=== PATIENT | female | born 1965 | race American Indian/Alaskan Native ===

== ENCOUNTER 2021-12-09 15:03 | Inpatient (IN) ==
[2021-12-09] MEDS ORDERED: cefTRIAXone 1 GM VIAL IV ONE (15:21)
[2021-12-09] MEDS ORDERED: 0.9 % SODIUM CHLORIDE 1,000 ML IV ONE ×2 (15:21)
--- NOTE | 2021-12-09 15:29 | Emergency Department Note ---
Female Urogenital HPI General Chief complaint: Urogenital-Female Stated complaint: UTI, High WBC Time Seen by Provider: 12/09/21 15:21 Source: patient Mode of arrival: ambulatory Limitations: no limitations History of Present Illness HPI Narrative: Narrative: Eight 56-year-old female presents to the emergency department because of fever chills and high white count. Patient went to the clinic where she was noted to have a white count of 21,000 and of large amount of leukocytes in her urine. She had a fever of 102 there and was referred here for further evaluation. Patient states she developed a headache on Thursday which got worse with time. She also developed a fever with that. States she took her migraine medications but they were of no help. Rates her headache as a 10 on a 0-to-10 scale. States it is constant. Nothing makes it better or worse. Related Data Home Medications Medication Instructions Recorded Confirmed carvedilol 6.25 mg tablet 6.25 mg PO BID 11/27/15 10/31/21 chlorthalidone 25 mg tablet 12.5 mg PO QDAY tab 11/27/15 10/31/21 naproxen 250 mg tablet 250 mg PO Q6-12H PRN 01/31/16 10/31/21 magnesium 1 dose PO DAILY 10/08/17 10/31/21 ascorbate calcium (vitamin C) 500 500 mg PO DAILY 02/03/19 10/31/21 mg tablet bupropion HCl 300 mg 24 hr tablet, 300 mg PO DAILY 02/03/19 10/31/21 extended release docusate sodium 100 mg capsule 100 mg PO TID 08/30/19 10/31/21 ergocalciferol (vitamin D2) 1,250 50,000 unit PO WEEKLY 08/30/19 10/31/21 mcg (50,000 unit) capsule multivitamin,[id number] 1 tab PO DAILY 08/30/19 10/31/21 omeprazole 20 mg capsule,delayed 20 mg PO ACB 08/30/19 10/31/21 release Previous Rx's Medication Instructions Recorded cyclobenzaprine 10 mg tablet 10 mg PO HS #30 tab 04/02/20 hydroxychloroquine 200 mg tablet 200 mg PO BID #60 tab 10/09/21 Allergies Allergy/AdvReac Type Severity Reaction Status Date / Time adhesive tape Allergy Unknown Rash Verified 12/09/21 15:05 codeine Allergy Unknown Nausea/Vomi Verified 12/09/21 15:05 ting Review of Systems ROS ROS Narrative: Narrative: Constitutional: Reports fever Eyes: Denies eye pain ENT ED: Reports rhinorrhea; Denies throat pain Cardiovascular: Denies chest pain Respiratory: Denies shortness of breath Gastrointestinal: Reports nausea (Earlier with headache.) Genitourinary: Denies dysuria (History of UTIs without dysuria) Musculoskeletal: Denies back pain Integumentary: Denies rash Neurological: Reports headache Psychiatric: Denies anxiety or depression Hematological/Lymphatic: Denies easy bleeding PFSH Narrative Patient History Narrative: Narrative: Medical/Surgical/Family History All Active Problems History of echocardiogram (Chronic 09/24/15) Back pain (Chronic 10/08/15) Herpes simplex type 1 infection (Chronic) History of mammogram (Chronic) Arm weakness (Chronic) Migraines (Chronic) Melasma (Chronic) Gastroesophageal reflux disease (Chronic) Aortic aneurysm (Chronic) Benign essential hypertension (Chronic) Anemia (Chronic) Lactose intolerance (Chronic) Systolic murmur (Chronic) Cough (Chronic) Lumbar spine pain (Chronic) UTI (urinary tract infection) (Chronic) Kidney stone (Chronic) Muscle pain (Chronic) Sciatica (Chronic) Anxiety (Chronic) Brief depressive adjustment reaction (Chronic) Syncope (Chronic) Abnormal Pap smear of cervix (Chronic) Thoracic back pain (Chronic) Hx of CT scan of brain (Chronic) Sinusitis (Chronic) Fatigue (Acute) Elevated erythrocyte sedimentation rate (Chronic) Abnormal immunological finding in serum (Chronic) Long-term use of immunosuppressant medication (Chronic) Elevated C-reactive protein (Chronic) Obesity (Acute) Medical History Abnormal immunological finding in serum Abnormal Pap smear of cervix 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 Anemia Anxiety Aortic aneurysm Arm weakness and numbness-intermittent Back pain (10/08/15) Benign essential hypertension Brief depressive adjustment reaction Cough Disorder of connective tissue Elevated C-reactive protein Elevated erythrocyte sedimentation rate Fatigue Gastroesophageal reflux disease Herpes simplex type 1 infection History of echocardiogram (09/24/15) History of mammogram Hx of CT scan of brain Kidney stone Lactose intolerance Long-term use of immunosuppressant medication Lumbar spine pain Melasma Migraines Muscle pain Obesity Sciatica Sinusitis Syncope Brain CT normal x sinusitis Systolic murmur Thoracic back pain Acute UTI (urinary tract infection) Surgical History Aortic dilatation Family History Other No pertinent family history Social History Smoking Status: Never smoker Exam Narrative Narrative: Narrative: General Limitations: no limitations General appearance: Present alert and in distress Head Head: Present atraumatic and normocephalic Eye Eye: Present normal appearance ENT ENT: Present normal oropharynx and mucous membranes moist Neck Neck: Present normal inspection and full ROM; Absent meningismus Respiratory Respiratory: Present normal lung sounds bilaterally; Absent respiratory distress Cardiovascular Cardiovascular: Present normal rhythm and tachycardia Adbominal Abdominal: Present soft; Absent distention, tenderness, guarding, rebound or rigidity Extremities Extremities: Present normal inspection Back Back: Absent tenderness Neurological Neurological: Present alert and oriented X3 Psychiatric Psychiatric: Present normal affect and normal mood Skin Skin: Present warm (WNL) and dry Course Vital Signs Vital signs: Vital Signs Temperature 100.2 F H 12/09/21 15:03 Pulse Rate 105 H 12/09/21 15:03 Respiratory Rate 18 12/09/21 15:03 Blood Pressure 122/73 12/09/21 15:03 Pulse Oximetry (%) 98 12/09/21 15:03 Temperature 100.2 F H 12/09/21 16:02 Pulse Rate 97 H 12/09/21 16:02 Respiratory Rate 18 12/09/21 15:03 Blood Pressure 132/59 12/09/21 16:02 Pulse Oximetry (%) 97 12/09/21 16:02 [facility] MDM Narrative Medical decision making narrative: Narrative: Middle-age female presents with her to the emergency department coming from acute care clinic because of a white count of 20,000 with leukocytosis and fever of 102. Differential diagnosis includes pyelonephritis, urosepsis, sepsis of other etiology, UTI, headache of unclear etiology, migraine, other Because of concern for sepsis sepsis blood work was ordered blood cultures were obtained and patient was started on ceftriaxone 1 g IV. At this time we are awaiting laboratory results. Patient's been given 975 mg of acetaminophen for headache. I am signing the case over to Dr. Ricardo Alcantar who will assume care of the patient and determine disposition Lab Data Result diagrams: 12/09/21 15:41 12/09/21 15:40 Discharge Plan Patient/Caregiver Discharge Instructions Pt seen by HEALTH ADMINISTRATION TEACHER/PA only: No Patient Disposition: Still a Patient Follow up with: Anjelica Gallardo ARNP [Primary Care Provider] - Prescriptions: No Action cyclobenzaprine 10 mg tablet 10 mg PO HS Qty: 30 3RF hydroxychloroquine 200 mg tablet 200 mg PO BID Qty: 60 3RF carvedilol 6.25 mg tablet 6.25 mg PO BID 0RF chlorthalidone 25 mg tablet 12.5 mg PO QDAY 0RF naproxen 250 mg tablet 250 mg PO Q6-12H PRN (Reason: Pain) 0RF magnesium 1 dose PO DAILY 0RF ascorbate calcium (vitamin C) 500 MG tablet 500 mg PO DAILY 0RF bupropion HCl 300 MG tablet extended release 24 hr 300 mg PO DAILY 0RF docusate sodium 100 MG capsule 100 mg PO TID 0RF omeprazole 20 MG capsule 20 mg PO ACB 0RF ergocalciferol (vitamin D2) 50,000 UNIT capsule 50,000 unit PO WEEKLY 0RF multivitamin,[id number]-[id number] 1 EACH tablet 1 tab PO DAILY 0RF
[2021-12-09] MEDS ORDERED: ACETAMINOPHEN 325 MG TABLET PO ONE (15:56)
[2021-12-09 16:35] LABS: Basophils # (Auto) 0.04 K/mcL (0.00-0.30); Basophils % (Auto) 0.2 % (0.0-2.0); Eosinophils # (Auto) 0.04 K/mcL (0.00-0.70); Eosinophils % (Auto) 0.2 % (0.0-7.0); Hematocrit 37.8 % (34.1-44.9); Hemoglobin 12.4 g/dL (11.2-15.7); Lymphocytes # (Auto) 2.53 K/mcL (1.50-4.80); Lymphocytes % (Auto) 12.7 % (15.5-49.0); Mean Cell Volume 91.3 fL (80.0-100.0); Mean Corpuscular HGB Conc 32.8 g/dL (31.0-36.0); Mean Platelet Volume 10.6 fL (7.4-10.4); Monocytes # (Auto) 2.29 K/mcL (0.10-0.90); Monocytes % (Auto) 11.5 % (1.0-12.0); Neutrophils % (Auto) 75.4 % (38.0-78.0); Platelet Count 245 K/mcL (140-440); RBC 4.14 M/mcL (3.59-5.38); WBC 19.9 K/mcL (4.5-11.0)
[2021-12-09 17:09] LABS: ALT/SGPT 12 U/L (<40); AST/SGOT 14 U/L (<32); Albumin 3.5 gm/dL (3.2-5.2); Albumin/Globulin Ratio 0.9 (1.0-2.3); Alkaline Phosphatase 96 U/L (39-117); Bilirubin,Total 0.5 mg/dL (0.1-1.0); Blood Urea Nitrogen 27 mg/dL (6-20); Calcium 10.3 mg/dL (8.6-10.4); Carbon Dioxide 28 mmol/L (22-30); Chloride 94 mmol/L (96-108); Glomerular Filtration Rate 27; Glucose 102 mg/dL (70-105)
--- NOTE | 2021-12-09 17:23 | Emergency Department Note ---
Course Vital Signs Vital signs: Vital Signs Temperature 37.9 C H 12/09/21 15:03 Pulse Rate 105 H 12/09/21 15:03 Respiratory Rate 18 12/09/21 15:03 Blood Pressure 122/73 12/09/21 15:03 Pulse Oximetry (%) 98 12/09/21 15:03 Temperature 38.2 C H 12/09/21 17:36 Pulse Rate 81 12/09/21 20:54 Respiratory Rate 18 12/09/21 15:03 Blood Pressure 127/68 12/09/21 20:54 Pulse Oximetry (%) 94 12/09/21 20:54 MDM MDM Narrative Medical decision making narrative: Narrative: Patient referred to the ER for suspected urinary infection /pyelonephritis, evaluated by Dr. Wong please refer to his note for complete details. Patient was borderline febrile 37.9, tracely tachycardic 105, with SIRS criteria so sepsis work-up was initiated Patient was given Tylenol, she was given 1 g of Rocephin, 2 L bolus while work was pending signed out to me pending final disposition 1700: Patient indeed has a leukocytosis 19.9, normal lactic acid of 1.1 Electrolytes show an acute kidney injury her BUN is 27 with a creatinine of 2.0 previously creatinine is less than 1. This may be due to infectious etiology but now concern for obstructive process as well will obtain CT of the abdomen without contrast. Still awaiting urinalysis, tachycardia resolved awaiting further diagnostics Urinalysis clearly infectious CT shows some left-sided hydronephrosis without obstruction Presentation consistent with a pyelonephritis in the setting of injury thus I consulted with urology Dr. Jacobs who recommends observation admission overnight for some further antibiotics fluids and trending of the creatinine to make sure it is improving and he will consult on the patient. Patient agreeable with this plan is feeling much better on reevaluation Spoke with hospitalist who accepts admission Lab Data Result diagrams: 12/09/21 15:41 12/09/21 15:40 Labs: Lab Results 12/09/21 12/09/21 12/09/21 Range/Units 15:40 15:40 15:41 WBC 19.9 H (4.5-11.0) K/mcL RBC 4.14 (3.59-5.38) M/mcL Hgb 12.4 (11.2-15.7) g/dL Hct 37.8 (34.1-44.9) % MCV 91.3 (80.0-100.0) fL MCH 30.0 (26.0-34.0) pg MCHC 32.8 (31.0-36.0) g/dL RDW 14.0 (11.5-14.5) % Plt Count 245 (140-440) K/mcL MPV 10.6 H (7.4-10.4) fL Neut % (Auto) 75.4 (38.0-78.0) % Lymph % (Auto) 12.7 L (15.5-49.0) % [place] % (Auto) 11.5 (1.0-12.0) % Eos % (Auto) 0.2 (0.0-7.0) % Baso % (Auto) 0.2 (0.0-2.0) % Lymph # (Auto) 2.53 (1.50-4.80) K/mcL [place] # (Auto) 2.29 H (0.10-0.90) K/mcL Eos # (Auto) 0.04 (0.00-0.70) K/mcL Baso # (Auto) 0.04 (0.00-0.30) K/mcL Absolute Neutrophils 14.96 H (1.80-8.00) K/mcL VBG Lactic Acid 1.1 (0.5-2.0) mmol/L Sodium 135 (133-145) mmol/L Potassium 3.2 L (3.3-5.1) mmol/L Chloride 94 L (96-108) mmol/L Carbon Dioxide 28 (22-30) mmol/L Anion Gap 13.0 (8.0-16.0) BUN 27 H (6-20) mg/dL Creatinine 2.0 H (0.6-1.1) mg/dL GFR Calculation 27 Glucose 102 (70-105) mg/dL Calcium 10.3 (8.6-10.4) mg/dL Total Bilirubin 0.5 (0.1-1.0) mg/dL AST 14 (<32) U/L ALT 12 (<40) U/L Alkaline Phosphatase 96 (39-117) U/L Total Protein 7.5 (5.9-8.4) gm/dL Albumin 3.5 (3.2-5.2) gm/dL Globulin 4.0 H (2.2-3.7) gm/dL Albumin/Globulin Ratio 0.9 L (1.0-2.3) Urine Color Urine Appearance (Clear) Urine pH (5.0-9.0) Ur Specific Big[place] (1.000-1.035) Urine Protein (Negative) mg/dL Urine Glucose (UA) (Negative) mg/dL Urine Ketones (Negative) mg/dL Urine Occult Blood (Negative) mg/dL Urine Nitrate (Negative) Urine Bilirubin (Negative) mg/dL Urine Urobilinogen mg/dL Ur Leukocyte Esterase (Negative) /uL Urine RBC (0-3) /hpf Urine WBC (0-4) /hpf Ur Squamous Epith Cells (0-4) /hpf Urine Bacteria (0) /hpf Urine Mucus (None) /hpf Ur Culture Indicated? 12/09/21 Range/Units 18:05 WBC (4.5-11.0) K/mcL RBC (3.59-5.38) M/mcL Hgb (11.2-15.7) g/dL Hct (34.1-44.9) % MCV (80.0-100.0) fL MCH (26.0-34.0) pg MCHC (31.0-36.0) g/dL RDW (11.5-14.5) % Plt Count (140-440) K/mcL MPV (7.4-10.4) fL Neut % (Auto) (38.0-78.0) % Lymph % (Auto) (15.5-49.0) % [place] % (Auto) (1.0-12.0) % Eos % (Auto) (0.0-7.0) % Baso % (Auto) (0.0-2.0) % Lymph # (Auto) (1.50-4.80) K/mcL [place] # (Auto) (0.10-0.90) K/mcL Eos # (Auto) (0.00-0.70) K/mcL Baso # (Auto) (0.00-0.30) K/mcL Absolute Neutrophils (1.80-8.00) K/mcL VBG Lactic Acid (0.5-2.0) mmol/L Sodium (133-145) mmol/L Potassium (3.3-5.1) mmol/L Chloride (96-108) mmol/L Carbon Dioxide (22-30) mmol/L Anion Gap (8.0-16.0) BUN (6-20) mg/dL Creatinine (0.6-1.1) mg/dL GFR Calculation Glucose (70-105) mg/dL Calcium (8.6-10.4) mg/dL Total Bilirubin (0.1-1.0) mg/dL AST (<32) U/L ALT (<40) U/L Alkaline Phosphatase (39-117) U/L Total Protein (5.9-8.4) gm/dL Albumin (3.2-5.2) gm/dL Globulin (2.2-3.7) gm/dL Albumin/Globulin Ratio (1.0-2.3) Urine Color Yellow Urine Appearance Cloudy A (Clear) Urine pH 6.0 (5.0-9.0) Ur Specific Bigfoot 1.008 (1.000-1.035) Urine Protein 30 A (Negative) mg/dL Urine Glucose (UA) Negative (Negative) mg/dL Urine Ketones Negative (Negative) mg/dL Urine Occult Blood 0.20 (Negative) mg/dL Urine Nitrate Pos A (Negative) Urine Bilirubin Negative (Negative) mg/dL Urine Urobilinogen Negative mg/dL Ur Leukocyte Esterase 500 A (Negative) /uL Urine RBC 15 H (0-3) /hpf Urine WBC > 182 H (0-4) /hpf Ur Squamous Epith Cells 2 (0-4) /hpf Urine Bacteria Few A (0) /hpf Urine Mucus Few A (None) /hpf Ur Culture Indicated? yes Discharge Plan Patient/Caregiver Discharge Instructions Pt seen by BINDERY PRODUCTION MANAGER/PA only: No Clinical Impression: Pyelonephritis Patient Disposition: Xfer As Inpt ([facility]) Condition: Fair Follow up with: Anjelica Gallardo ARNP [Primary Care Provider] - Prescriptions: No Action cyclobenzaprine 10 mg tablet 10 mg PO HS Qty: 30 3RF hydroxychloroquine 200 mg tablet 200 mg PO BID Qty: 60 3RF carvedilol 6.25 mg tablet 6.25 mg PO BID 0RF chlorthalidone 25 mg tablet 12.5 mg PO QDAY 0RF naproxen 250 mg tablet 250 mg PO Q6-12H PRN (Reason: Pain) 0RF magnesium 1 dose PO DAILY 0RF ascorbate calcium (vitamin C) 500 MG tablet 500 mg PO DAILY 0RF bupropion HCl 300 MG tablet extended release 24 hr 300 mg PO DAILY 0RF docusate sodium 100 MG capsule 100 mg PO TID 0RF omeprazole 20 MG capsule 20 mg PO ACB 0RF ergocalciferol (vitamin D2) 50,000 UNIT capsule 50,000 unit PO WEEKLY 0RF multivitamin,[id number] 1 EACH tablet 1 tab PO DAILY 0RF
--- NOTE | 2021-12-09 18:47 | Cat Scan Report ---
INDICATION: pyelo LAUREEN, concern for obstruction, stone etc COMPARISON: None. TECHNIQUE: Axial images were obtained through the abdomen and pelvis. Sagittally and coronally reformatted images. FINDINGS: Lung bases:No pulmonary parenchymal density. No calcified or noncalcified nodule. No pleural or pericardial effusion Liver:Negative to the limits of noncontrast enhanced examination. Liver contour is smooth without evidence for cirrhosis Gallbladder, bilary:No calcified gallstones. No gallbladder wall thickening. No pericholecystic fluid. No dilated bile ducts Spleen:No splenomegaly Pancreas:No pancreatic mass. No peripancreatic abnormality Adrenal glands:Negative Kidneys,ureters,bladder:Negative right kidney. No obstructing or nonobstructing calculi. No hydronephrosis. There is mild left hydronephrosis. No left renal stone identified. Left ureter is not significantly dilated. There is no ureteral calculus. Clinical correlation for possible recent passage of a left ureteral stone is recommended. No bladder stone. No detectable bladder mass. Gastrointestinal:No detectable colonic mass. There is no diverticulitis. Negative small bowel. No mechanical small bowel obstruction. No bowel wall thickening. No focal abnormality. Negative stomach and duodenum. No focal abnormality. Appendix: The appendix is negative Vascular:No abdominal aortic aneurysm Lymphatic:No retroperitoneal adenopathy. No significant mesenteric adenopathy. Mesentery, peritoneum:No free intraperitoneal fluid. No intra-abdominal abscess. No pneumoperitoneum Reproductive:Uterus is anteflexed. No adnexal mass Musculoskeletal:No lumbar compression fractures. No lytic lesions. Sacrum, pelvis, hips are negative No anterior abdominal wall or inguinal hernia. IMPRESSION: 1. Mild left hydronephrosis. No obstructing stone identified. 2. No other abnormality The exam was performed using radiation dose optimization techniques including, but not limited to, automated exposure control, adjustment of the mA and/or kV according to patient size and use of iterative reconstruction technique. Interpreted and Authenticated by: Ector Blake 12/09/21
[2021-12-09 20:05] LABS: Appearance,Urine CLOUDY (Clear); Bacteria,Urine FEW /hpf (0); Bilirubin,Urine Negative (Negative); Color,Urine YELLOW; Culture Indicated,Urine yes; Glucose,Urine (UA) Negative (Negative); Ketones,Urine Negative (Negative); Leukocyte Esterase,Urine 500 /uL (Negative); Mucus,Urine FEW /hpf; Nitrate,Urine POS (Negative); Protein,Urine 30 mg/dL (Negative); Specific Gravity,Urine 1.008 (1.000-1.035); Urine RBC 15 /hpf (0-3); Urine Squamous Epithelial Cell 2 /hpf (0-4); Urine WBC > 182 /hpf (0-4); Urobilinogen,Urine Negative
[2021-12-09] MEDS ORDERED: ACETAMINOPHEN 500 MG TABLET PO ONE (21:02)
[2021-12-09] MEDS ORDERED: ONDANSETRON 4 MG ODT TABLET SL PRN (21:49)
[2021-12-09] MEDS ORDERED: ONDANSETRON 4 MG/2 ML VIAL IV PRN (21:49)
--- NOTE | 2021-12-09 21:58 | Internal Med History&Physical ---
HPI History of Present Illness Patient information: Note initiated : 12/09/21 at 9:52 pm Service Date, if different from initiated Date: [as above] Patient: Sruthi Fan a 56 y/o F admitted on for UTI, High WBC. Chief Complaint: [Malaise] Chief complaint: Referred from urgent care History of present illness: Ms. Fan is a 56 year old F with a past medical history significant for depression, essential hypertension, and migraines presents to the hospital with 3-day history of malaise, inappetence, and headaches. The patient also states that she noted a fever of 104 at home. That is when she decided to seek medical treatment. She denied any urinary symptoms of dysuria, frequency, hematuria or flank pain. She presented to the urgent care and was found to have grossly abnormal urine. Due to her significant lab abnormalities, it was recommended she come to the ER for further management and evaluation. On arrival, the patient was hemodynamically stable and afebrile. CT abdomen pelvis without contrast was performed and revealed mild left hydronephrosis with no obstructing stone or perinephric abscess. Labs revealed white blood cell count of 19.9, and creatinine of 2.0. The patient's urinalysis was grossly abnormal. Urine culture and blood culture pending. The hospital service was asked admit the patient for further management of her acute kidney injury in the setting of pyelonephritis. Review of Systems All systems: reviewed and no additional remarkable complaints except as stated Constitutional Constitutional: Present as per HPI EENT Eyes: Present as per HPI; Absent blurry vision Cardiovascular Cardiovascular: Present as per HPI; Absent chest pain, dyspnea, dyspnea on exertion, leg edema or palpatations Respiratory Respiratory: Present as per HPI; Absent cough, dyspnea, dyspnea on exertion, wheezing or stridor Gastrointestinal Gastrointestinal: Present as per HPI; Absent abdominal pain, diarrhea, dysphagia, hematemesis, melena, nausea or vomiting Musculoskeletal Musculoskeletal: Present as per HPI; Absent joint swelling, limited range of motion, muscle cramps, muscle weakness or myalgias Integumentary Integumentary: Present as per HPI; Absent erythema, new lesions, rash or wounds Neurological Neurological: Present as per HPI; Absent abnormal gait, behavioral changes, focal weakness, headache(s), loss of vision, numbness, sensory deficit or syncope Endocrine Endocrine: Absent change in body appearance, fatigue or heat intolerance Hematologic/Lymphatic Hematologic/Lymphatic: Present as per HPI PFSH PFSH All Active Problems (Updated 12/09/21 @ 21:57 by Cherie Lang MD) Acute kidney injury (Acute) History of echocardiogram (Chronic 09/24/15) Back pain (Chronic 10/08/15) Herpes simplex type 1 infection (Chronic) History of mammogram (Chronic) Arm weakness (Chronic) Migraines (Chronic) Melasma (Chronic) Gastroesophageal reflux disease (Chronic) Aortic aneurysm (Chronic) Benign essential hypertension (Chronic) Anemia (Chronic) Lactose intolerance (Chronic) Systolic murmur (Chronic) Cough (Chronic) Lumbar spine pain (Chronic) UTI (urinary tract infection) (Chronic) Kidney stone (Chronic) Muscle pain (Chronic) Sciatica (Chronic) Anxiety (Chronic) Brief depressive adjustment reaction (Chronic) Syncope (Chronic) Abnormal Pap smear of cervix (Chronic) Thoracic back pain (Chronic) Hx of CT scan of brain (Chronic) Sinusitis (Chronic) Fatigue (Acute) Elevated erythrocyte sedimentation rate (Chronic) Abnormal immunological finding in serum (Chronic) Long-term use of immunosuppressant medication (Chronic) Elevated C-reactive protein (Chronic) Obesity (Acute) Pyelonephritis (Acute) Medical History (Updated 12/09/21 @ 21:57 by Cherie Lang MD) Abnormal immunological finding in serum Abnormal Pap smear of cervix 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 Anemia Anxiety Aortic aneurysm Arm weakness and numbness-intermittent Back pain (10/08/15) Benign essential hypertension Brief depressive adjustment reaction Cough Disorder of connective tissue Elevated C-reactive protein Elevated erythrocyte sedimentation rate Fatigue Gastroesophageal reflux disease Herpes simplex type 1 infection History of echocardiogram (09/24/15) History of mammogram Hx of CT scan of brain Kidney stone Lactose intolerance Long-term use of immunosuppressant medication Lumbar spine pain Melasma Migraines Muscle pain Obesity Sciatica Sinusitis Syncope Brain CT normal x sinusitis Systolic murmur Thoracic back pain Acute UTI (urinary tract infection) Surgical History Aortic dilatation Family History Other No pertinent family history MEDS/ALLERGIES Home Medications and Allergies Home Medications Medication Instructions Recorded Confirmed Type carvedilol 6.25 mg tablet 6.25 mg PO BID 11/27/15 10/31/21 History chlorthalidone 25 mg tablet 12.5 mg PO QDAY tab 11/27/15 10/31/21 History naproxen 250 mg tablet 250 mg PO Q6-12H PRN 01/31/16 10/31/21 History magnesium 1 dose PO DAILY 10/08/17 10/31/21 History ascorbate calcium (vitamin C) 500 500 mg PO DAILY 02/03/19 10/31/21 History mg tablet bupropion HCl 300 mg 24 hr tablet, 300 mg PO DAILY 02/03/19 10/31/21 History extended release docusate sodium 100 mg capsule 100 mg PO TID 08/30/19 10/31/21 History ergocalciferol (vitamin D2) 1,250 50,000 unit PO WEEKLY 08/30/19 10/31/21 History mcg (50,000 unit) capsule multivitamin,[id number] 1 tab PO DAILY 08/30/19 10/31/21 History omeprazole 20 mg capsule,delayed 20 mg PO ACB 08/30/19 10/31/21 History release cyclobenzaprine 10 mg tablet 10 mg PO HS #30 tab 04/02/20 10/31/21 Rx hydroxychloroquine 200 mg tablet 200 mg PO BID #60 tab 10/09/21 10/31/21 Rx Allergies Allergy/AdvReac Type Severity Reaction Status Date / Time adhesive tape Allergy Unknown Rash Verified 12/09/21 15:05 codeine Allergy Unknown Nausea/Vomi Verified 12/09/21 15:05 ting EXAM Constitutional Vitals: Temp Pulse Resp BP Pulse Ox 100.7 F H 78 18 121/60 91 12/09/21 17:36 12/09/21 21:41 12/09/21 15:03 12/09/21 21:41 12/09/21 21:41 General appearance: average body habitus Head Head exam: Present atraumatic, normal inspection and normocephalic Eye Eye exam: Present EOMI, normal appearance and PERRL; Absent conjunctival injection ENT ENT exam: Present normal exam; Absent mucous membranes dry Neck Neck exam: Present full ROM; Absent lymphadenopathy Respiratory Respiratory exam: Present normal respiratory exam and CTAB; Absent decreased breath sounds, respiratory distress or wheezes Cardiovascular Cardiovascular exam: Present normal rate and rhythm and RRR; Absent JVD GI/Abdominal GI/Abdominal exam: Present normal bowel sounds and soft; Absent diminished bowel sounds, distended, guarding, mass, rebound or tenderness Neurological Exam Neurological exam: Present alert, CN II-XII intact and oriented X3 Psychiatric Psychiatric exam: Present normal affect and normal mood Skin Skin exam: Present intact and warm; Absent erythema, pallor, petechiae or rash DATA Data Completed and Pending Labs: Labs from last 24 hours 12/09/21 12/09/21 12/09/21 18:05 15:41 15:40 WBC 19.9 H RBC 4.14 Hgb 12.4 Hct 37.8 MCV 91.3 MCH 30.0 MCHC 32.8 RDW 14.0 Plt Count 245 MPV 10.6 H Neut % (Auto) 75.4 Lymph % (Auto) 12.7 L [place] % (Auto) 11.5 Eos % (Auto) 0.2 Baso % (Auto) 0.2 Lymph # (Auto) 2.53 [place] # (Auto) 2.29 H Eos # (Auto) 0.04 Baso # (Auto) 0.04 Absolute Neutrophils 14.96 H VBG Lactic Acid 1.1 Sodium Potassium Chloride Carbon Dioxide Anion Gap BUN Creatinine GFR Calculation Glucose Calcium Total Bilirubin AST ALT Alkaline Phosphatase Total Protein Albumin Globulin Albumin/Globulin Ratio Urine Color Yellow Urine Appearance Cloudy A Urine pH 6.0 Ur Specific [place] 1.008 Urine Protein 30 A Urine Glucose (UA) Negative Urine Ketones Negative Urine Occult Blood 0.20 Urine Nitrate Pos A Urine Bilirubin Negative Urine Urobilinogen Negative Ur Leukocyte Esterase 500 A Urine RBC 15 H Urine WBC > 182 H Ur Squamous Epith Cells 2 Urine Bacteria Few A Urine Mucus Few A Ur Culture Indicated? yes 12/09/21 15:40 WBC RBC Hgb Hct MCV MCH MCHC RDW Plt Count MPV Neut % (Auto) Lymph % (Auto) [place] % (Auto) Eos % (Auto) Baso % (Auto) Lymph # (Auto) [place] # (Auto) Eos # (Auto) Baso # (Auto) Absolute Neutrophils VBG Lactic Acid Sodium 135 Potassium 3.2 L Chloride 94 L Carbon Dioxide 28 Anion Gap 13.0 BUN 27 H Creatinine 2.0 H GFR Calculation 27 Glucose 102 Calcium 10.3 Total Bilirubin 0.5 AST 14 ALT 12 Alkaline Phosphatase 96 Total Protein 7.5 Albumin 3.5 Globulin 4.0 H Albumin/Globulin Ratio 0.9 L Urine Color Urine Appearance Urine pH Ur Specific [place] Urine Protein Urine Glucose (UA) Urine Ketones Urine Occult Blood Urine Nitrate Urine Bilirubin Urine Urobilinogen Ur Leukocyte Esterase Urine RBC Urine WBC Ur Squamous Epith Cells Urine Bacteria Urine Mucus Ur Culture Indicated? A/P Assessment and plan (1) Pyelonephritis: Status: Acute (2) Obesity: Status: Acute Qualifiers: Obesity type: unspecified obesity type Obesity classification: unspecified obesity classification Serious obesity comorbidity presence: unspecified whether serious comorbidity present Qualified Code(s): E66.9 - Obesity, unspecified (3) Anxiety: Status: Chronic (4) Migraines: Status: Chronic (5) Acute kidney injury: Status: Acute (6) Long-term use of immunosuppressant medication: Status: Chronic Narrative A/P Narrative: The patient presented to the hospital with 72-hour history of nonspecific symptoms surprisingly without any urinary symptoms and was found to have pyelonephritis with acute kidney injury. Plan of Treatment: At this point we will continue IV fluid resuscitation with LR 100 cc an hour to treat her acute kidney injury in the setting of underlying infectious process. The patient's urine culture and blood cultures are pending and in the meantime she will be treated with IV ceftriaxone. Her home diuretics and antihypertensives will be held. Time Spent With Patient Time: Total time spent is greater than 50% in coordination of care (as documented) at patient's floor/unit and/or counseling patient: Total time spent with greater than 50% in coordination of care (as documented) at patient's floor/unit and/or counseling patient:: 50 - 70 minutes
[2021-12-09] MEDS ORDERED: cefTRIAXone 1 GM in DEXTROSE 5% IN WATER 50 ML IV SCH (22:00)
[2021-12-09] MEDS: LACTATED RINGERS 1,000 ML IV SCH (22:52)
[2021-12-09] MEDS: 0.9 % SODIUM CHLORIDE 10 ML SYRINGE IV SCH (22:52)
[2021-12-10] MEDS: ACETAMINOPHEN 325 MG TABLET PO PRN ×4 (00:32→23:35)
[2021-12-10] MEDS ORDERED: ACETAMINOPHEN 325 MG TABLET PO ONE (00:35)
[2021-12-10] MEDS: 0.9 % SODIUM CHLORIDE 10 ML SYRINGE IV SCH ×3 (04:04→20:07)
[2021-12-10 06:16] LABS: Basophils # (Auto) 0.03 K/mcL (0.00-0.30); Basophils % (Auto) 0.2 % (0.0-2.0); Eosinophils # (Auto) 0.08 K/mcL (0.00-0.70); Eosinophils % (Auto) 0.6 % (0.0-7.0); Hematocrit 33.4 % (34.1-44.9); Hemoglobin 10.7 g/dL (11.2-15.7); Lymphocytes # (Auto) 1.92 K/mcL (1.50-4.80); Lymphocytes % (Auto) 14.7 % (15.5-49.0); Mean Cell Volume 94.4 fL (80.0-100.0); Mean Platelet Volume 10.4 fL (7.4-10.4); Monocytes # (Auto) 1.73 K/mcL (0.10-0.90); Monocytes % (Auto) 13.2 % (1.0-12.0); Neutrophils % (Auto) 71.3 % (38.0-78.0); Platelet Count 210 K/mcL (140-440); RBC 3.54 M/mcL (3.59-5.38); Red Cell Distribution Width 14.3 % (11.5-14.5); WBC 13.1 K/mcL (4.5-11.0)
[2021-12-10 07:18] LABS: Blood Urea Nitrogen 23 mg/dL (6-20); Calcium 9.3 mg/dL (8.6-10.4); Carbon Dioxide 26 mmol/L (22-30); Chloride 100 mmol/L (96-108); Glomerular Filtration Rate 42; Glucose 93 mg/dL (70-105)
[2021-12-10] MEDS ORDERED: POTASSIUM CHLORIDE 20 MEQ TABLET PO ONE ×2 (07:58→12:00)
[2021-12-10] MEDS ORDERED: KETOROLAC 15 MG/ML VIAL IV ONE (08:15)
[2021-12-10] MEDS: cefTRIAXone 1 GM VIAL IV SCH (08:27)
[2021-12-10] MEDS: ENOXAPARIN 40 MG/0.4 ML SYRINGE SQ SCH (08:27)
[2021-12-10] MEDS: DOCUSATE SODIUM 100 MG CAPSULE PO SCH ×3 (08:28→20:06)
--- NOTE | 2021-12-10 09:23 | Internal Med Progress Note ---
SUBJECTIVE Subjective Patient information: Note initiated : 12/10/21 at 9:21 am Service Date, if different from initiated Date: [] Patient: Sruthi Fan a 56 y/o F admitted on 12/09/21 for UTI, High WBC. Chief Complaint: [Weakness] Principal diagnosis: Pyelonephritis, acute kidney injury Interval history: The patient was resting comfortably in bed. She did have a migraine and was given IV Toradol this morning per my discussion with RN. The was present at the bedside. We discussed plan of care and disposition. Answered all of their questions to their satisfaction. Constitutional Vitals: Vital Signs Temp Pulse Resp BP Pulse Ox 97.3 F 77 20 128/68 94 12/10/21 07:26 12/10/21 07:26 12/10/21 07:26 12/10/21 07:26 12/10/21 07:26 Period Temp Pulse Resp BP Sys/Ross Pulse Ox Last 24 Hr 96.6 F-100.7 F 69-105 18-20 108-133/44-74 91-100 Intake and Output 12/09/21 12/10/21 12/10/21 21:59 05:59 13:59 Intake Total 2000 480 Output Total 850 300 Balance 2000 -370 -300 Weight 90.718 kg 90.718 kg Intake & Output: Intake & Output 12/09/21 12/10/21 12/10/21 21:59 05:59 13:59 Intake Total 2000 480 Output Total 850 300 Balance 2000 -370 -300 Weight 90.718 kg 90.718 kg Intake: IV 2000 Sodium Chloride 0.9% 1,000 ml @ 2000 Wide Open IV BOLUS ONE Rx#: [id number] Oral 480 Output: Void Amount 850 300 Other: Meal Dinner Percent of Meal Consumed 25% Feeding Ability Independent Urine Appearance Cloudy Urine Color Bright Yellow Urine Odor Normal Head Head exam: Present atraumatic and normal inspection Eye Eye exam: Present normal appearance ENT ENT exam: Present mucous membranes moist, normal exam and normal external ear exam Neck Neck exam: Present normal inspection Respiratory Respiratory exam: Present normal respiratory exam Cardiovascular Cardiovascular exam: Present normal rate and rhythm GI/Abdominal GI/Abdominal exam: Present normal bowel sounds Back Exam Back exam: Present normal inspection Neurological Exam Neurological exam: Present alert and oriented X3 Skin Skin exam: Present intact and warm OBJ DATA Labs CBC & Chem 7: 12/10/21 05:12 12/10/21 05:12 Labs: Abnormal Lab Results 12/10/21 12/10/21 12/09/21 05:12 05:12 18:05 WBC 13.1 H RBC 3.54 L Hgb 10.7 L Hct 33.4 L MPV Lymph % (Auto) 14.7 L [place] % (Auto) 13.2 H [place] # (Auto) 1.73 H Absolute Neutrophils 9.33 H Potassium 2.9 L* Chloride BUN 23 H Creatinine 1.4 H Globulin Albumin/Globulin Ratio Urine Appearance Cloudy A Urine Protein 30 A Urine Nitrate Pos A Ur Leukocyte Esterase 500 A Urine RBC 15 H Urine WBC > 182 H Urine Bacteria Few A Urine Mucus Few A 12/09/21 12/09/21 15:41 15:40 WBC 19.9 H RBC Hgb Hct MPV 10.6 H Lymph % (Auto) 12.7 L [place] % (Auto) [place] # (Auto) 2.29 H Absolute Neutrophils 14.96 H Potassium 3.2 L Chloride 94 L BUN 27 H Creatinine 2.0 H Globulin 4.0 H Albumin/Globulin Ratio 0.9 L Urine Appearance Urine Protein Urine Nitrate Ur Leukocyte Esterase Urine RBC Urine WBC Urine Bacteria Urine Mucus Meds: Medications Acetaminophen (Acetaminophen 325 Mg Tablet) 650 mg PO Q6HP PRN; Protocol PRN Reason: Per Pain Protocol/Fever > 101 Last Admin: 12/10/21 06:43 Dose: 650 mg Documented by: Ceftriaxone Sodium (Ceftriaxone 1 Gm Vial) 1 gm IV Q24H [facility] [place] Last Admin: 12/10/21 08:27 Dose: 1 gm Documented by: Docusate Sodium (Docusate Sodium 100 Mg Capsule) 100 mg PO BID [facility] [place] Last Admin: 12/10/21 08:28 Dose: 100 mg Documented by: Enoxaparin Sodium (Enoxaparin 40 Mg/0.4 Ml Syringe) 40 mg SQ DAILY [facility] [place] Last Admin: 12/10/21 08:27 Dose: 40 mg Documented by: Lactated Ringer's (Lactated Ringers) 1,000 mls @ 100 mls/hr IV .Q10H [facility] [place] Last Admin: 12/09/21 22:52 Dose: 100 mls/hr Documented by: Ondansetron HCl (Ondansetron 4 Mg/2 Ml Vial) 4 mg IV Q6HP PRN PRN Reason: Nausea And Vomiting Ondansetron HCl (Ondansetron 4 Mg Odt Tablet) 4 mg SL Q6HP PRN PRN Reason: Nausea And Vomiting Potassium Chloride (Potassium Chloride 20 Meq Tablet) 40 meq PO ONCE ONE Stop: 12/10/21 12:01 Senna (Sennosides 1 Tablet) 2 tab PO HS [place] Sodium Chloride (0.9 % Sodium Chloride 10 Ml Syringe) 10 ml IV Q8 [place] Last Admin: 12/10/21 04:04 Dose: Not Given Documented by: A/P Assessment and plan (1) Pyelonephritis: Status: Acute (2) Obesity: Status: Acute Qualifiers: Obesity type: unspecified obesity type Obesity classification: unspecified obesity classification Serious obesity comorbidity presence: unspecified whether serious comorbidity present Qualified Code(s): E66.9 - Obesity, unspecified (3) Anxiety: Status: Chronic (4) Migraines: Status: Chronic (5) Acute kidney injury: Status: Acute (6) Long-term use of immunosuppressant medication: Status: Chronic Narrative A/P Narrative: The patient presented to the hospital with 72-hour history of nonspecific symptoms surprisingly without any urinary symptoms and was found to have pyelonephritis with acute kidney injury. Plan of Treatment: At this point we will continue IV fluid resuscitation with LR 100 cc an hour to treat her acute kidney injury in the setting of underlying infectious process. The patient's urine culture and blood cultures are pending and in the meantime she will be treated with IV ceftriaxone. Her home diuretics and antihypertensives will be held. 12/10: The patient's white blood cell count has come down to 13,000 and her creatinine is improved to 1.4. Urine culture and blood cultures are pending. We will continue empiric IV ceftriaxone. The patient will likely discharge home tomorrow morning. Time Spent With Patient Time: Total time spent is greater than 50% in coordination of care (as documented) at patient's floor/unit and/or counseling patient: Total time spent with greater than 50% in coordination of care (as documented) at patient's floor/unit and/or counseling patient:: 25 - 35 minutes
[2021-12-10] MEDS: LACTATED RINGERS 1,000 ML IV SCH ×3 (09:25→20:06)
[2021-12-10] MEDS ORDERED: TAMSULOSIN 0.4 MG CAPSULE PO SCH (11:00)
--- NOTE | 2021-12-10 11:45 | Urology Consult Note ---
HPI Data of Consult Patient: new to practice Consult date: 12/10/21 Primary Care Provider: TERRY Pinto Consult Narrative Chief complaint: Recurrent urinary tract infections and present pyelonephritis Reason for consult: Patient is seen for evaluation after admission for pyelonephritis History of present illness: Patient is seen as a 56-year-old white female with history of recurrent urinary tract infections previously seen and [facility] by Dr. Green several years ago with work-up showing no problems except some urinary retention. Patient's had 6-8 infections per year some of which have flank pain consistent with pyelonephritis and requiring more extensive medical regimen. She notes she has been menopausal with some vaginal dryness but does not see association with sexual activity. At this point she sees no other contributing factors but does note he sometimes has to double void to be able to empty her bladder especially in the evening. She has had intermittent headaches as well and some arthritis as her only other significant problem with some well-controlled hypertension. cc:: CC: Cherie Lang MD PFS PFSH All Active Problems (Updated 12/10/21 @ 11:55 by Alexi Jacobs MD) History of kidney stones (Acute) Urinary retention with incomplete bladder emptying (Acute) Acute kidney injury (Acute) History of echocardiogram (Chronic 09/24/15) Back pain (Chronic 10/08/15) Herpes simplex type 1 infection (Chronic) History of mammogram (Chronic) Arm weakness (Chronic) Migraines (Chronic) Melasma (Chronic) Gastroesophageal reflux disease (Chronic) Aortic aneurysm (Chronic) Benign essential hypertension (Chronic) Anemia (Chronic) Lactose intolerance (Chronic) Systolic murmur (Chronic) Cough (Chronic) Lumbar spine pain (Chronic) UTI (urinary tract infection) (Chronic) Kidney stone (Chronic) Muscle pain (Chronic) Sciatica (Chronic) Anxiety (Chronic) Brief depressive adjustment reaction (Chronic) Syncope (Chronic) Abnormal Pap smear of cervix (Chronic) Thoracic back pain (Chronic) Hx of CT scan of brain (Chronic) Sinusitis (Chronic) Fatigue (Acute) Elevated erythrocyte sedimentation rate (Chronic) Abnormal immunological finding in serum (Chronic) Long-term use of immunosuppressant medication (Chronic) Elevated C-reactive protein (Chronic) Obesity (Acute) Pyelonephritis (Acute) Medical History (Updated 12/10/21 @ 11:55 by Alexi Jacobs MD) Abnormal immunological finding in serum Abnormal Pap smear of cervix 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 Anemia Anxiety Aortic aneurysm Arm weakness and numbness-intermittent Back pain (10/08/15) Benign essential hypertension Brief depressive adjustment reaction Cough Disorder of connective tissue Elevated C-reactive protein Elevated erythrocyte sedimentation rate Fatigue Gastroesophageal reflux disease Herpes simplex type 1 infection History of echocardiogram (09/24/15) History of mammogram Hx of CT scan of brain Kidney stone Lactose intolerance Long-term use of immunosuppressant medication Lumbar spine pain Melasma Migraines Muscle pain Obesity Sciatica Sinusitis Syncope Brain CT normal x sinusitis Systolic murmur Thoracic back pain Acute UTI (urinary tract infection) Surgical History Aortic dilatation Family History Other No pertinent family history MEDS/ALLERGIES Home Medications and Allergies Home Medications Medication Instructions Recorded Confirmed Type carvedilol 6.25 mg tablet 6.25 mg PO BID 11/27/15 12/09/21 History chlorthalidone 25 mg tablet 12.5 mg PO QDAY tab 11/27/15 12/09/21 History naproxen 250 mg tablet 250 mg PO Q6-12H PRN 01/31/16 12/09/21 History magnesium 1 dose PO DAILY 10/08/17 12/09/21 History ascorbate calcium (vitamin C) 500 500 mg PO DAILY 02/03/19 12/09/21 History mg tablet bupropion HCl 300 mg 24 hr tablet, 300 mg PO DAILY 02/03/19 12/09/21 History extended release docusate sodium 100 mg capsule 100 mg PO TID 08/30/19 12/09/21 History ergocalciferol (vitamin D2) 1,250 50,000 unit PO WEEKLY 08/30/19 12/09/21 History mcg (50,000 unit) capsule multivitamin,av-fnxo-affamtys 1 tab PO DAILY 08/30/19 12/09/21 History omeprazole 20 mg capsule,delayed 20 mg PO ACB 08/30/19 12/09/21 History release cyclobenzaprine 10 mg tablet 10 mg PO HS #30 tab 04/02/20 12/09/21 Rx hydroxychloroquine 200 mg tablet 200 mg PO BID #60 tab 10/09/21 12/09/21 Rx Allergies Allergy/AdvReac Type Severity Reaction Status Date / Time adhesive tape Allergy Mild Rash Verified 12/10/21 06:52 codeine AdvReac Mild Nausea/Vomi Verified 12/10/21 06:52 ting Physical Examination Vital Signs Vital signs: Temp Pulse Resp BP Pulse Ox 97.3 F 77 20 128/68 94 12/10/21 07:26 12/10/21 07:26 12/10/21 07:26 12/10/21 07:26 12/10/21 07:26 Additional Findings Additional exam: Patient is well-developed heavyset female with some obvious discomfort lying in room 128 during evaluation with complaint of headache as well as back pain. She is alert oriented cooperative HEENT within normal limits Back some CVA tenderness left sided chest normal respiratory excursion deferred Results Labs Result diagrams: 12/10/21 05:12 12/10/21 05:12 Labs: Abnormal lab results 12/09/21 12/09/21 12/09/21 Range/Units 15:40 15:41 18:05 WBC 19.9 H (4.5-11.0) K/mcL RBC (3.59-5.38) M/mcL Hgb (11.2-15.7) g/dL Hct (34.1-44.9) % MPV 10.6 H (7.4-10.4) fL Lymph % (Auto) 12.7 L (15.5-49.0) % [place] % (Auto) (1.0-12.0) % [place] # (Auto) 2.29 H (0.10-0.90) K/mcL Absolute Neutrophils 14.96 H (1.80-8.00) K/mcL Potassium 3.2 L (3.3-5.1) mmol/L Chloride 94 L (96-108) mmol/L BUN 27 H (6-20) mg/dL Creatinine 2.0 H (0.6-1.1) mg/dL Globulin 4.0 H (2.2-3.7) gm/dL Albumin/Globulin Ratio 0.9 L (1.0-2.3) Urine Appearance Cloudy A (Clear) Urine Protein 30 A (Negative) mg/dL Urine Nitrate Pos A (Negative) Ur Leukocyte Esterase 500 A (Negative) /uL Urine RBC 15 H (0-3) /hpf Urine WBC > 182 H (0-4) /hpf Urine Bacteria Few A (0) /hpf Urine Mucus Few A (None) /hpf 12/10/21 12/10/21 Range/Units 05:12 05:12 WBC 13.1 H (4.5-11.0) K/mcL RBC 3.54 L (3.59-5.38) M/mcL Hgb 10.7 L (11.2-15.7) g/dL Hct 33.4 L (34.1-44.9) % MPV (7.4-10.4) fL Lymph % (Auto) 14.7 L (15.5-49.0) % [place] % (Auto) 13.2 H (1.0-12.0) % [place] # (Auto) 1.73 H (0.10-0.90) K/mcL Absolute Neutrophils 9.33 H (1.80-8.00) K/mcL Potassium 2.9 L* (3.3-5.1) mmol/L Chloride (96-108) mmol/L BUN 23 H (6-20) mg/dL Creatinine 1.4 H (0.6-1.1) mg/dL Globulin (2.2-3.7) gm/dL Albumin/Globulin Ratio (1.0-2.3) Urine Appearance (Clear) Urine Protein (Negative) mg/dL Urine Nitrate (Negative) Ur Leukocyte Esterase (Negative) /uL Urine RBC (0-3) /hpf Urine WBC (0-4) /hpf Urine Bacteria (0) /hpf Urine Mucus (None) /hpf Diabetes panel 12/09/21 12/10/21 Range/Units 15:40 05:12 Sodium 135 136 (133-145) mmol/L Potassium 3.2 L 2.9 L* (3.3-5.1) mmol/L Chloride 94 L 100 (96-108) mmol/L Carbon Dioxide 28 26 (22-30) mmol/L BUN 27 H 23 H (6-20) mg/dL Creatinine 2.0 H 1.4 H (0.6-1.1) mg/dL Glucose 102 93 (70-105) mg/dL Calcium 10.3 9.3 (8.6-10.4) mg/dL AST 14 (<32) U/L ALT 12 (<40) U/L Alkaline Phosphatase 96 (39-117) U/L Total Protein 7.5 (5.9-8.4) gm/dL Albumin 3.5 (3.2-5.2) gm/dL Calcium panel 12/09/21 12/10/21 Range/Units 15:40 05:12 Calcium 10.3 9.3 (8.6-10.4) mg/dL Albumin 3.5 (3.2-5.2) gm/dL Pituitary panel 12/09/21 12/10/21 Range/Units 15:40 05:12 Sodium 135 136 (133-145) mmol/L Potassium 3.2 L 2.9 L* (3.3-5.1) mmol/L Chloride 94 L 100 (96-108) mmol/L Carbon Dioxide 28 26 (22-30) mmol/L BUN 27 H 23 H (6-20) mg/dL Creatinine 2.0 H 1.4 H (0.6-1.1) mg/dL Glucose 102 93 (70-105) mg/dL Calcium 10.3 9.3 (8.6-10.4) mg/dL Adrenal panel 12/09/21 12/10/21 Range/Units 15:40 05:12 Sodium 135 136 (133-145) mmol/L Potassium 3.2 L 2.9 L* (3.3-5.1) mmol/L Chloride 94 L 100 (96-108) mmol/L Carbon Dioxide 28 26 (22-30) mmol/L BUN 27 H 23 H (6-20) mg/dL Creatinine 2.0 H 1.4 H (0.6-1.1) mg/dL Glucose 102 93 (70-105) mg/dL Calcium 10.3 9.3 (8.6-10.4) mg/dL Total Bilirubin 0.5 (0.1-1.0) mg/dL AST 14 (<32) U/L ALT 12 (<40) U/L Alkaline Phosphatase 96 (39-117) U/L Total Protein 7.5 (5.9-8.4) gm/dL Albumin 3.5 (3.2-5.2) gm/dL All other labs normal. A/P Assessment and plan (1) Acute kidney injury: Status: Acute (2) Urinary retention with incomplete bladder emptying: Status: Acute (3) Back pain: Status: Chronic Qualifiers: Back pain location: low back pain Chronicity: chronic Back pain laterality: unspecified Sciatica presence: with sciatica Sciatica laterality: sciatica of right side Qualified Code(s): M54.41 - Lumbago with sciatica, right side (4) UTI (urinary tract infection): Status: Chronic (5) Obesity: Status: Acute Qualifiers: Obesity type: unspecified obesity type Obesity classification: unspecified obesity classification Serious obesity comorbidity presence: unspecified whether serious comorbidity present Qualified Code(s): E66.9 - Obesity, unspecified (6) Pyelonephritis: Status: Acute (7) History of kidney stones: Status: Acute Plan Assessment: Left-sided pyelonephritis with recurrent UTI history and no obvious pathology presently Patient does have past history of nephrolithiasis and possible recently passed stone not unlikely etiology. Will assess for a potential urinary retention issue with bladder scanning and consider Flomax if significant retention noted Will follow along with lab assessment and hopefully resolution of infection and renal dysfunction with antibiotic regimen as per hospitalist service Narrative A/P Narrative: Plan: Proceed with continued medical management and potentially had estrogen locally and possible cystoscopy once infection cleared If Flomax utilized and effective would continue same Appreciate hospitalist service medical management assistance Plan of Treatment: At this point we will continue IV fluid resuscitation with LR 100 cc an hour to treat her acute kidney injury in the setting of underlying infectious process. The patient's urine culture and blood cultures are pending and in the meantime she will be treated with IV ceftriaxone. Her home diuretics and antihypertensives will be held. 12/10: The patient's white blood cell count has come down to 13,000 and her creatinine is improved to 1.4. Urine culture and blood cultures are pending. We will continue empiric IV ceftriaxone. The patient will likely discharge home tomorrow morning. Time Spent With Patient Time: Total time spent is greater than 50% in coordination of care (as documented) at patient's floor/unit and/or counseling patient:
[2021-12-10] MEDS: SENNOSIDES 1 TABLET PO SCH ×2 (20:03→20:07)
[2021-12-10] MEDS ORDERED: KETOROLAC 30 MG/ML VIAL IV ONE (20:34)
[2021-12-11] MEDS: 0.9 % SODIUM CHLORIDE 10 ML SYRINGE IV SCH ×3 (04:41→20:29)
[2021-12-11] MEDS: LACTATED RINGERS 1,000 ML IV SCH ×4 (04:41→16:59)
[2021-12-11] MEDS: ACETAMINOPHEN 325 MG TABLET PO PRN ×2 (06:20→19:49)
[2021-12-11 06:52] LABS: Basophils # (Auto) 0.04 K/mcL (0.00-0.30); Basophils % (Auto) 0.3 % (0.0-2.0); Eosinophils # (Auto) 0.07 K/mcL (0.00-0.70); Eosinophils % (Auto) 0.5 % (0.0-7.0); Hematocrit 32.3 % (34.1-44.9); Hemoglobin 10.5 g/dL (11.2-15.7); Lymphocytes # (Auto) 2.16 K/mcL (1.50-4.80); Lymphocytes % (Auto) 15.3 % (15.5-49.0); Mean Cell Volume 94.4 fL (80.0-100.0); Mean Corpuscular HGB Conc 32.5 g/dL (31.0-36.0); Mean Platelet Volume 10.3 fL (7.4-10.4); Monocytes # (Auto) 1.57 K/mcL (0.10-0.90); Monocytes % (Auto) 11.1 % (1.0-12.0); Neutrophils % (Auto) 72.8 % (38.0-78.0); Platelet Count 213 K/mcL (140-440); RBC 3.42 M/mcL (3.59-5.38); Red Cell Distribution Width 14.4 % (11.5-14.5); WBC 14.1 K/mcL (4.5-11.0)
[2021-12-11 07:30] LABS: Blood Urea Nitrogen 12 mg/dL (6-20); Calcium 9.3 mg/dL (8.6-10.4); Carbon Dioxide 24 mmol/L (22-30); Chloride 96 mmol/L (96-108); Glomerular Filtration Rate 56; Glucose 87 mg/dL (70-105)
--- NOTE | 2021-12-11 07:38 | Urology Progress Note ---
SUBJECTIVE Subjective Patient information: Note initiated : 12/11/21 at 7:35 am Service Date, if different from initiated Date: [] Patient: Sruthi Fan 56 y/o F admitted on 12/09/21 for UTI, High WBC. Chief Complaint: [] Principal diagnosis: Pyelonephritis, acute kidney injury Interval history: still some headache pain but better flank pain and seems to be improved voiding with flomax headache pain continues as frontal in location chemistry pending but WBC still elevated at 14,000 eating OK Constitutional Vitals: Vital Signs Temp Pulse Resp BP Pulse Ox 98.9 F 81 22 116/60 93 12/11/21 03:28 12/11/21 03:28 12/11/21 03:28 12/11/21 03:28 12/11/21 03:28 Period Temp Pulse Resp BP Sys/Ross Pulse Ox Last 24 Hr 97.4 F-102.8 F 75-97 20-24 115-137/59-74 91-100 Intake and Output 12/10/21 12/11/21 12/11/21 21:59 05:59 13:59 Intake Total 1480 1200 1000 Output Total 1100 1500 Balance 380 -300 1000 Weight 237 lb 12.8 oz Intake & Output: Intake & Output 12/10/21 12/11/21 12/11/21 21:59 05:59 13:59 Intake Total 1480 1200 1000 Output Total 1100 1500 Balance 380 -300 1000 Weight 237 lb 12.8 oz Intake: IV 1000 1000 Lactated Ringers 1,000 ml @ 100 1000 1000 mls/hr IV .Q10H [facility] Rx#: [id number] Oral 480 1200 Output: Void Amount 1100 1500 Other: Meal Lunch Percent of Meal Consumed 50% Urine Appearance Clear Clear Urine Color Bright Yellow Bright Yellow Urine Odor Normal Stool Consistency Loose # Bowel Movements 1 Additional findings Additional findings: alert and cooperative but in distress with headache discomfort HEENT grossly nl normal respirations minimal flank pain to percussion deferred A/P Assessment and plan (1) History of kidney stones: Assessment and plan: Assessment: UTI improved but labs-micro pending and await renal function findings retention ? persisting Headache ? etiology Plan: recheck bladder scan and U/A Hospitalist eval of headache management` Status: Acute (2) Urinary retention with incomplete bladder emptying: Status: Acute (3) Pyelonephritis: Status: Acute (4) Headache above the eye region: Status: Acute Narrative Plan of Treatment: At this point we will continue IV fluid resuscitation with LR 100 cc an hour to treat her acute kidney injury in the setting of underlying infectious process. The patient's urine culture and blood cultures are pending and in the meantime she will be treated with IV ceftriaxone. Her home diuretics and antihypertensives will be held. 12/10: The patient's white blood cell count has come down to 13,000 and her creatinine is improved to 1.4. Urine culture and blood cultures are pending. We will continue empiric IV ceftriaxone. The patient will likely discharge home tomorrow morning. Time Spent With Patient Time: Total time spent is greater than 50% in coordination of care (as documented) at patient's floor/unit and/or counseling patient:
[2021-12-11] MEDS: cefTRIAXone 1 GM VIAL IV SCH (08:51)
[2021-12-11] MEDS: ENOXAPARIN 40 MG/0.4 ML SYRINGE SQ SCH (08:51)
[2021-12-11] MEDS: DOCUSATE SODIUM 100 MG CAPSULE PO SCH ×3 (08:58→20:56)
[2021-12-11] MEDS ORDERED: SUMAtriptan SUCCINATE 6 MG/0.5 ML VIAL SQ ONE (09:27)
[2021-12-11] MEDS ORDERED: PROCHLORPERAZINE 10 MG/2 ML VIAL IV ONE (09:27)
[2021-12-11] MEDS ORDERED: KETOROLAC 30 MG/ML VIAL IV ONE (09:27)
[2021-12-11] MEDS: CEFEPIME 2 GM VIAL IV SCH ×2 (10:24→21:04)
--- NOTE | 2021-12-11 14:02 | Internal Med Progress Note ---
SUBJECTIVE Subjective Patient information: Note initiated : 12/11/21 at 2:00 pm Service Date, if different from initiated Date: [as above] Patient: Sruthi Fan a 56 y/o F admitted on 12/09/21 for UTI, High WBC. Chief Complaint: [] Principal diagnosis: Pyelonephritis, acute kidney injury Interval history: The patient continues to have fevers. She complains of a headache this morning. Discussed the case and plan of care. Initial thought was discharged this morning however that has been canceled. Constitutional Vitals: Vital Signs Temp Pulse Resp BP Pulse Ox 98.2 F 78 20 116/61 97 12/11/21 12:00 12/11/21 12:00 12/11/21 12:00 12/11/21 12:00 12/11/21 12:00 Period Temp Pulse Resp BP Sys/Ross Pulse Ox Last 24 Hr 98.1 F-102.8 F 78-97 20-24 115-137/59-67 93-100 Intake and Output 12/11/21 12/11/21 12/11/21 05:59 13:59 21:59 Intake Total 1200 1120 Output Total 1500 600 Balance -300 520 Weight 107.864 kg Patient Weight 12/12/21 05:59 Weight 107.864 kg Intake & Output: Intake & Output 12/11/21 12/11/21 12/11/21 05:59 13:59 21:59 Intake Total 1200 1120 Output Total 1500 600 Balance -300 520 Weight 107.864 kg Intake: IV 1000 Lactated Ringers 1,000 ml @ 100 1000 mls/hr IV .Q10H [facility] Rx#: [id number] Oral 1200 120 Output: Urine Catheter Amount 400 Straight 400 Void Amount 1500 200 Other: Meal Breakfast Percent of Meal Consumed 75% Feeding Ability Independent Urine Appearance Clear Straight Clear Urine Color Bright Yellow Bright Yellow Straight Bright Yellow Urine Odor Normal Normal # Bowel Movements 1 Head Head exam: Present atraumatic and normal inspection Eye Eye exam: Present normal appearance ENT ENT exam: Present mucous membranes moist, normal exam and normal external ear exam Neck Neck exam: Present normal inspection Respiratory Respiratory exam: Present normal respiratory exam Cardiovascular Cardiovascular exam: Present normal rate and rhythm GI/Abdominal GI/Abdominal exam: Present normal bowel sounds Back Exam Back exam: Present normal inspection Neurological Exam Neurological exam: Present alert and oriented X3 Skin Skin exam: Present intact and warm OBJ DATA Labs CBC & Chem 7: 12/11/21 05:32 12/11/21 05:32 Labs: Abnormal Lab Results 12/11/21 12/10/21 12/10/21 05:32 05:12 05:12 WBC 14.1 H 13.1 H RBC 3.42 L 3.54 L Hgb 10.5 L 10.7 L Hct 32.3 L 33.4 L MPV Lymph % (Auto) 15.3 L 14.7 L [place] % (Auto) 13.2 H [place] # (Auto) 1.57 H 1.73 H Absolute Neutrophils 10.27 H 9.33 H Potassium 2.9 L* Chloride BUN 23 H Creatinine 1.4 H Globulin Albumin/Globulin Ratio Urine Appearance Urine Protein Urine Nitrate Ur Leukocyte Esterase Urine RBC Urine WBC Urine Bacteria Urine Mucus 12/09/21 12/09/21 12/09/21 18:05 15:41 15:40 WBC 19.9 H RBC Hgb Hct MPV 10.6 H Lymph % (Auto) 12.7 L [place] % (Auto) [place] # (Auto) 2.29 H Absolute Neutrophils 14.96 H Potassium 3.2 L Chloride 94 L BUN 27 H Creatinine 2.0 H Globulin 4.0 H Albumin/Globulin Ratio 0.9 L Urine Appearance Cloudy A Urine Protein 30 A Urine Nitrate Pos A Ur Leukocyte Esterase 500 A Urine RBC 15 H Urine WBC > 182 H Urine Bacteria Few A Urine Mucus Few A Meds: Medications Acetaminophen (Acetaminophen 325 Mg Tablet) 650 mg PO Q6HP PRN; Protocol PRN Reason: Per Pain Protocol/Fever > 101 Last Admin: 12/11/21 06:20 Dose: 650 mg Documented by: Cefepime HCl (Cefepime 2 Gm Vial) 2 gm IV Q12H [facility]; Protocol Last Admin: 12/11/21 10:24 Dose: 2 gm Documented by: Docusate Sodium (Docusate Sodium 100 Mg Capsule) 100 mg PO BID [facility] Last Admin: 12/11/21 08:58 Dose: Not Given Documented by: Enoxaparin Sodium (Enoxaparin 40 Mg/0.4 Ml Syringe) 40 mg SQ DAILY [facility] Last Admin: 12/11/21 08:51 Dose: 40 mg Documented by: Lactated Ringer's (Lactated Ringers) 1,000 mls @ 100 mls/hr IV .Q10H [facility] Last Admin: 12/11/21 06:51 Dose: 100 mls/hr Documented by: Ondansetron HCl (Ondansetron 4 Mg/2 Ml Vial) 4 mg IV Q6HP PRN PRN Reason: Nausea And Vomiting Ondansetron HCl (Ondansetron 4 Mg Odt Tablet) 4 mg SL Q6HP PRN PRN Reason: Nausea And Vomiting Senna (Sennosides 1 Tablet) 2 tab PO [facility] Last Admin: 12/10/21 20:07 Dose: Not Given Documented by: Sodium Chloride (0.9 % Sodium Chloride 10 Ml Syringe) 10 ml IV Q8 [facility] Last Admin: 12/11/21 04:41 Dose: Not Given Documented by: Tamsulosin HCl (Tamsulosin 0.4 Mg Capsule) 0.4 mg PO [facility] A/P Assessment and plan (1) Pyelonephritis: Status: Acute (2) Obesity: Status: Acute Qualifiers: Obesity type: unspecified obesity type Obesity classification: uns pecified obesity classification Serious obesity comorbidity presence: unsp ecified whether serious comorbidity present Qualified Code(s): E66.9 - Obesity, unspecified (3) Anxiety: Status: Chronic (4) Migraines: Status: Chronic (5) Acute kidney injury: Status: Acute (6) Long-term use of immunosuppressant medication: Status: Chronic Narrative A/P Narrative: The patient presented to the hospital with 72-hour history of nonspecific symptoms surprisingly without any urinary symptoms and was found to have pyelonephritis with acute kidney injury. Plan of Treatment: At this point we will continue IV fluid resuscitation with LR 100 cc an hour to treat her acute kidney injury in the setting of underlying infectious process. The patient's urine culture and blood cultures are pending and in the meantime she will be treated with IV ceftriaxone. Her home diuretics and antihypertensives will be held. 12/10: The patient's white blood cell count has come down to 13,000 and her creatinine is improved to 1.4. Urine culture and blood cultures are pending. We will continue empiric IV ceftriaxone. The patient will likely discharge home tomorrow morning. 12/11: The patient's white blood cell count remains elevated at 14,000 and she continues to have fevers. Surprisingly her urine culture and blood cultures are negative. I will check respiratory panel and also broaden her coverage to cef epime and vancomycin. She has been given a migraine cocktail of sumatriptan, Compazine and Toradol x1. We will continue to monitor her inpatient. Time Spent With Patient Time: Total time spent is greater than 50% in coordination of care (as documented) at patient's floor/unit and/or counseling patient: Total time spent with greater than 50% in coordination of care (as documented) at patient's floor/unit and/or counseling patient:: 35 - 50 minutes
[2021-12-11 16:39] LABS: Appearance,Urine Clear (Clear); Bacteria,Urine FEW /hpf (0); Bilirubin,Urine Negative (Negative); Color,Urine Yellow; Culture Indicated,Urine No; Glucose,Urine (UA) Negative (Negative); Ketones,Urine Negative (Negative); Leukocyte Esterase,Urine Negative /uL (Negative); Mucus,Urine FEW /hpf; Nitrate,Urine Negative (Negative); Protein,Urine Negative (Negative); Specific Gravity,Urine 1.015 (1.000-1.035); Urine Blood Small ery/mcL (Negative); Urine RBC 8 /hpf (0-3); Urine Squamous Epithelial Cell 5 /hpf (0-4); Urine WBC 2 /hpf (0-4); Urobilinogen,Urine Normal
[2021-12-11] MEDS: SENNOSIDES 1 TABLET PO SCH ×2 (20:28→20:56)
[2021-12-11] MEDS ORDERED: TAMSULOSIN 0.4 MG CAPSULE PO SCH (21:00)
[2021-12-11] MEDS ORDERED: PROCHLORPERAZINE 10 MG/2 ML VIAL IV PRN (21:32)
[2021-12-11] MEDS: KETOROLAC 30 MG/ML VIAL IV PRN (22:20)
[2021-12-12] MEDS: KETOROLAC 30 MG/ML VIAL IV PRN ×2 (04:32→18:58)
[2021-12-12] MEDS: 0.9 % SODIUM CHLORIDE 10 ML SYRINGE IV SCH ×3 (04:32→20:18)
[2021-12-12] MEDS: ACETAMINOPHEN 325 MG TABLET PO PRN ×2 (04:32→17:38)
--- NOTE | 2021-12-12 05:43 | XRay Report ---
INDICATION: patient continues to spike fevers TECHNIQUE: PA chest x-ray COMPARISON: Previous chest CT dated 09/23/2021 FINDINGS: Lungs:Lungs are negative. No focal pulmonary parenchymal infiltrate or mass Heart, vascular:No significant cardiomegaly. Pulmonary vascularity is normal. No pulmonary edema or pulmonary congestion Mediastinum, nirav:No mediastinal widening. No hilar mass Pleura:No pleural fluid. No pleural-based mass or calcification Skeletal:Negative. IMPRESSION: Negative AP chest section Interpreted and Authenticated by: Ector Blake 12/12/21
--- NOTE | 2021-12-12 05:45 | Cat Scan Report ---
INDICATION: headache unresponsive to medication COMPARISON: None. TECHNIQUE: Axial noncontrast-enhanced images through the brain. Sagittally and coronally reformatted images. FINDINGS: Cerebral hemispheres:Negative. No intra-axial abnormality. No intra-axial hematoma. No localized mass effect.Brain volume is within normal limits for age. Periventricular white matter is negative without significant attenuation abnormality. Brainstem and cerebellum:No intra-axial abnormality Extra-axial:No acute hemorrhage. No subdural or epidural hematoma. No subarachnoid hemorrhage. Basilar cisterns are normal Calvarial:No calvarial fracture. No lytic lesion Temporal bones are negative. No destructive lesions Soft tissue, orbits, sinuses:Orbits and visualized facial soft tissues and paranasal sinuses are negative IMPRESSION: Negative noncontrast enhanced brain CT scan The exam was performed using radiation dose optimization techniques including, but not limited to, automated exposure control, adjustment of the mA and/or kV according to patient size and use of iterative reconstruction technique. Interpreted and Authenticated by: Ector Blake 12/12/21
[2021-12-12 07:29] LABS: Basophils # (Auto) 0.04 K/mcL (0.00-0.30); Basophils % (Auto) 0.4 % (0.0-2.0); Eosinophils % (Auto) 0.9 % (0.0-7.0); Hematocrit 30.1 % (34.1-44.9); Hemoglobin 9.9 g/dL (11.2-15.7); Lymphocytes # (Auto) 1.89 K/mcL (1.50-4.80); Lymphocytes % (Auto) 16.9 % (15.5-49.0); Mean Cell Volume 92.3 fL (80.0-100.0); Mean Corpuscular HGB Conc 32.9 g/dL (31.0-36.0); Mean Platelet Volume 10.1 fL (7.4-10.4); Monocytes # (Auto) 1.35 K/mcL (0.10-0.90); Monocytes % (Auto) 12.1 % (1.0-12.0); Neutrophils % (Auto) 69.7 % (38.0-78.0); Platelet Count 222 K/mcL (140-440); RBC 3.26 M/mcL (3.59-5.38); Red Cell Distribution Width 14.3 % (11.5-14.5); WBC 11.2 K/mcL (4.5-11.0)
[2021-12-12] MEDS ORDERED: VANCOMYCIN PER PHARMACY IV SCH (08:42)
[2021-12-12] MEDS: DOCUSATE SODIUM 100 MG CAPSULE PO SCH ×3 (09:00→20:18)
[2021-12-12] MEDS: ENOXAPARIN 40 MG/0.4 ML SYRINGE SQ SCH (10:08)
[2021-12-12] MEDS: VANCOMYCIN 1,500 MG in 0.9 % SODIUM CHLORIDE 500 ML IV SCH ×2 (10:08→20:18)
--- NOTE | 2021-12-12 12:15 | Urology Progress Note ---
SUBJECTIVE Subjective Patient information: Note initiated : 12/12/21 at 12:12 pm Service Date, if different from initiated Date: [] Patient: Sruthi Fan 56 y/o F admitted on 12/09/21 for UTI, High WBC. Chief Complaint: [] Principal diagnosis: Pyelonephritis, acute kidney injury Interval history: patient doing muchbetter voidinfg and headache improved labs improved with WBC to 11.100 Constitutional Vitals: Vital Signs Temp Pulse Resp BP Pulse Ox 98.2 F 75 24 H 125/69 96 12/12/21 11:49 12/12/21 11:49 12/12/21 11:49 12/12/21 11:49 12/12/21 11:49 Period Temp Pulse Resp BP Sys/Ross Pulse Ox Last 24 Hr 97.5 F-102.8 F 71-89 20-40 113-140/48-69 90-97 Intake and Output 12/11/21 12/12/21 12/12/21 21:59 05:59 13:59 Intake Total 1200 2040 480 Output Total 1125 400 Balance 75 1640 480 Weight 227 lb 9.6 oz Intake & Output: Intake & Output 12/11/21 12/12/21 12/12/21 21:59 05:59 13:59 Intake Total 1200 2040 480 Output Total 1125 400 Balance 75 1640 480 Weight 227 lb 9.6 oz Intake: IV 1000 1000 Lactated Ringers 1,000 ml @ 100 1000 1000 mls/hr IV .Q10H [facility] Rx#: [id number] Oral 200 1040 480 Output: Void Amount 1125 400 Other: Meal Breakfast Percent of Meal Consumed 100% Urine Appearance Clear Urine Color Bright Yellow # Voids 1 1 Additional findings Additional findings: alert and no acute distress no CVA tenderness abd soft HENT grossly normal A/P Assessment and plan (1) Urinary retention: Status: Acute (2) History of kidney stones: Status: Acute (3) Pyelonephritis: Status: Acute Plan Ass: resolving Pyelonephritis with persistent no growth on culture but suspicious of results--responding to RX and would cont orals for another week persistent retention on flomax unfortunately Plan: OK to discharge when medical overall approved by hospitalist and would recheck in clinic in 2 weeks or so for repeat eval and possible cystoscopy and reimaging would continue Flomax and antibiotic for one more week Narrative Plan of Treatment: At this point we will continue IV fluid resuscitation with LR 100 cc an hour to treat her acute kidney injury in the setting of underlying infectious process. The patient's urine culture and blood cultures are pending and in the meantime she will be treated with IV ceftriaxone. Her home diuretics and antihypertensives will be held. 12/10: The patient's white blood cell count has come down to 13,000 and her creatinine is improved to 1.4. Urine culture and blood cultures are pending. We will continue empiric IV ceftriaxone. The patient will likely discharge home tomorrow morning. 12/11: The patient's white blood cell count remains elevated at 14,000 and she continues to have fevers. Surprisingly her urine culture and blood cultures are negative. I will check respiratory panel and also broaden her coverage to cefepime and vancomycin. She has been given a migraine cocktail of sumatriptan, Compazine and Toradol x1. We will continue to monitor her inpatient. 12/12: The patient's CT head and chest x-ray were unrevealing. I wanted to rule out other possible sources of infection and possibly an LP with her ongoing headaches and fevers. Her urine culture has come back and it is E. coli confirming pyelonephritis. Her antibiotics have been switched to vancomycin and cefepime. She has been afebrile for 12 hours now. Her white blood cell count is also come back down to 11,000. Overall she is doing much better and the hope that she can return home tomorrow. Time Spent With Patient Time: Total time spent is greater than 50% in coordination of care (as documented) at patient's floor/unit and/or counseling patient: Total time spent with greater than 50% in coordination of care (as documented) at patient's floor/unit and/or counseling patient:: 15 - 24 minutes
--- NOTE | 2021-12-12 12:20 | Internal Med Progress Note ---
SUBJECTIVE Subjective Patient information: Note initiated : 12/12/21 at 12:18 pm Service Date, if different from initiated Date: [] Patient: Sruthi Fan a 56 y/o F admitted on 12/09/21 for UTI, High WBC. Chief Complaint: [] Principal diagnosis: Pyelonephritis, acute kidney injury Interval history: The patient was complaining of headaches yesterday. She had ongoing fevers. She is doing much better today. She was walking the hallways and took a shower. Her friend was present at the bedside. We discussed plan of care and disposition. Discussed the case with RN. I was able to answer all of her questions to her satisfaction. Constitutional Vitals: Vital Signs Temp Pulse Resp BP Pulse Ox 98.2 F 75 24 H 125/69 96 12/12/21 11:49 12/12/21 11:49 12/12/21 11:49 12/12/21 11:49 12/12/21 11:49 Period Temp Pulse Resp BP Sys/Ross Pulse Ox Last 24 Hr 97.5 F-102.8 F 71-89 20-40 113-140/48-69 90-97 Intake and Output 12/11/21 12/12/21 12/12/21 21:59 05:59 13:59 Intake Total 1200 2040 480 Output Total 1125 400 Balance 75 1640 480 Weight 103.238 kg Intake & Output: Intake & Output 12/11/21 12/12/21 12/12/21 21:59 05:59 13:59 Intake Total 1200 2040 480 Output Total 1125 400 Balance 75 1640 480 Weight 103.238 kg Intake: IV 1000 1000 Lactated Ringers 1,000 ml @ 100 1000 1000 mls/hr IV .Q10H [facility] Rx#: [id number] Oral 200 1040 480 Output: Void Amount 1125 400 Other: Meal Breakfast Percent of Meal Consumed 100% Urine Appearance Clear Urine Color Bright Yellow # Voids 1 1 Head Head exam: Present atraumatic and normal inspection Eye Eye exam: Present normal appearance ENT ENT exam: Present mucous membranes moist, normal exam and normal external ear exam Neck Neck exam: Present normal inspection Respiratory Respiratory exam: Present normal respiratory exam Cardiovascular Cardiovascular exam: Present normal rate and rhythm GI/Abdominal GI/Abdominal exam: Present normal bowel sounds Back Exam Back exam: Present normal inspection Neurological Exam Neurological exam: Present alert and oriented X3 Skin Skin exam: Present intact and warm OBJ DATA Labs CBC & Chem 7: 12/12/21 05:38 12/11/21 05:32 Labs: Abnormal Lab Results 12/12/21 12/11/21 12/11/21 05:38 08:30 05:32 WBC 11.2 H 14.1 H RBC 3.26 L 3.42 L Hgb 9.9 L 10.5 L Hct 30.1 L 32.3 L MPV Lymph % (Auto) 15.3 L [place] % (Auto) 12.1 H [place] # (Auto) 1.35 H 1.57 H Absolute Neutrophils 10.27 H Potassium Chloride BUN Creatinine Globulin Albumin/Globulin Ratio Urine Appearance Urine Protein Urine Occult Blood Small A Urine Nitrate Ur Leukocyte Esterase Urine RBC 8 H Urine WBC Ur Squamous Epith Cells 5 H Urine Bacteria Few A Urine Mucus Few A 12/10/21 12/10/21 12/09/21 05:12 05:12 18:05 WBC 13.1 H RBC 3.54 L Hgb 10.7 L Hct 33.4 L MPV Lymph % (Auto) 14.7 L [place] % (Auto) 13.2 H [place] # (Auto) 1.73 H Absolute Neutrophils 9.33 H Potassium 2.9 L* Chloride BUN 23 H Creatinine 1.4 H Globulin Albumin/Globulin Ratio Urine Appearance Cloudy A Urine Protein 30 A Urine Occult Blood Urine Nitrate Pos A Ur Leukocyte Esterase 500 A Urine RBC 15 H Urine WBC > 182 H Ur Squamous Epith Cells Urine Bacteria Few A Urine Mucus Few A 12/09/21 12/09/21 15:41 15:40 WBC 19.9 H RBC Hgb Hct MPV 10.6 H Lymph % (Auto) 12.7 L [place] % (Auto) [place] # (Auto) 2.29 H Absolute Neutrophils 14.96 H Potassium 3.2 L Chloride 94 L BUN 27 H Creatinine 2.0 H Globulin 4.0 H Albumin/Globulin Ratio 0.9 L Urine Appearance Urine Protein Urine Occult Blood Urine Nitrate Ur Leukocyte Esterase Urine RBC Urine WBC Ur Squamous Epith Cells Urine Bacteria Urine Mucus Meds: Medications Acetaminophen (Acetaminophen 325 Mg Tablet) 650 mg PO Q6HP PRN; Protocol PRN Reason: Per Pain Protocol/Fever > 101 Last Admin: 12/12/21 04:32 Dose: 650 mg Documented by: Cefepime HCl (Cefepime 2 Gm Vial) 2 gm IV Q12H [facility]; Protocol Last Admin: 12/11/21 21:04 Dose: 2 gm Documented by: Docusate Sodium (Docusate Sodium 100 Mg Capsule) 100 mg PO BID [facility] Last Admin: 12/12/21 10:09 Dose: Not Given Documented by: Enoxaparin Sodium (Enoxaparin 40 Mg/0.4 Ml Syringe) 40 mg SQ DAILY [facility] Last Admin: 12/12/21 10:08 Dose: 40 mg Documented by: Vancomycin HCl 1,500 mg/ (Sodium Chloride) 500 mls @ 333.3 mls/hr IV Q12H [facility] Last Admin: 12/12/21 10:08 Dose: 333.3 mls/hr Documented by: Ketorolac Tromethamine (Ketorolac 30 Mg/Ml Vial) 30 mg IV Q6HP PRN PRN Reason: Per Pain Protocol Stop: 12/13/21 21:32 Last Admin: 12/12/21 04:32 Dose: 30 mg Documented by: Ondansetron HCl (Ondansetron 4 Mg/2 Ml Vial) 4 mg IV Q6HP PRN PRN Reason: Nausea And Vomiting Ondansetron HCl (Ondansetron 4 Mg Odt Tablet) 4 mg SL Q6HP PRN PRN Reason: Nausea And Vomiting Prochlorperazine (Prochlorperazine 10 Mg/2 Ml Vial) 10 mg IV Q4-6HP PRN PRN Reason: Nausea And Vomiting Last Admin: 12/12/21 04:32 Dose: 10 mg Documented by: Senna (Sennosides 1 Tablet) 2 tab PO HS [facility] Last Admin: 12/11/21 20:56 Dose: Not Given Documented by: Sodium Chloride (0.9 % Sodium Chloride 10 Ml Syringe) 10 ml IV Q8 [facility] Last Admin: 12/12/21 04:32 Dose: 10 ml Documented by: Vancomycin HCl (Vancomycin Per Pharmacy) 1 order IV UD [facility]; Protocol A/P Assessment and plan (1) Pyelonephritis: Status: Acute (2) Obesity: Status: Acute Qualifiers: Obesity type: unspecified obesity type Obesity classification: unspecified obesity classification Serious obesity comorbidity presence: unspecified whether serious comorbidity present Qualified Code(s): E66.9 - Obesity, unspecified (3) Anxiety: Status: Chronic (4) Migraines: Status: Chronic (5) Acute kidney injury: Status: Acute (6) Long-term use of immunosuppressant medication: Status: Chronic Narrative A/P Narrative: The patient presented to the hospital with 72-hour history of nonspecific symptoms surprisingly without any urinary symptoms and was found to have pyelonephritis with acute kidney injury. Plan of Treatment: At this point we will continue IV fluid resuscitation with LR 100 cc an hour to treat her acute kidney injury in the setting of underlying infectious process. The patient's urine culture and blood cultures are pending and in the meantime she will be treated with IV ceftriaxone. Her home diuretics and antihypertensives will be held. 12/10: The patient's white blood cell count has come down to 13,000 and her creatinine is improved to 1.4. Urine culture and blood cultures are pending. We will continue empiric IV ceftriaxone. The patient will likely discharge home tomorrow morning. 12/11: The patient's white blood cell count remains elevated at 14,000 and she continues to have fevers. Surprisingly her urine culture and blood cultures are negative. I will check respiratory panel and also broaden her coverage to cefepime and vancomycin. She has been given a migraine cocktail of sumatriptan, Compazine and Toradol x1. We will continue to monitor her inpatient. 12/12: The patient's CT head and chest x-ray were unrevealing. I wanted to rule out other possible sources of infection and possibly an LP with her ongoing headaches and fevers. Her urine culture has come back and it is E. coli confirming pyelonephritis. Her antibiotics have been switched to vancomycin and cefepime. She has been afebrile for 12 hours now. Her white blood cell count is also come back down to 11,000. Overall she is doing much better and the hope that she can return home tomorrow. Time Spent With Patient Time: Total time spent is greater than 50% in coordination of care (as documented) at patient's floor/unit and/or counseling patient: Total time spent with greater than 50% in coordination of care (as documented) at patient's floor/unit and/or counseling patient:: 25 - 35 minutes
[2021-12-12] MEDS: CEFEPIME 2 GM VIAL IV SCH ×2 (12:56→20:17)
[2021-12-12] MEDS: SENNOSIDES 1 TABLET PO SCH (20:18)
[2021-12-13] MEDS: 0.9 % SODIUM CHLORIDE 10 ML SYRINGE IV SCH (04:01)
[2021-12-13 07:22] LABS: Basophils # (Auto) 0.07 K/mcL (0.00-0.30); Basophils % (Auto) 0.8 % (0.0-2.0); Eosinophils # (Auto) 0.29 K/mcL (0.00-0.70); Eosinophils % (Auto) 3.1 % (0.0-7.0); Hematocrit 30.3 % (34.1-44.9); Hemoglobin 9.9 g/dL (11.2-15.7); Lymphocytes # (Auto) 2.41 K/mcL (1.50-4.80); Lymphocytes % (Auto) 26.1 % (15.5-49.0); Mean Cell Volume 91.3 fL (80.0-100.0); Mean Corpuscular HGB Conc 32.7 g/dL (31.0-36.0); Mean Platelet Volume 10.1 fL (7.4-10.4); Monocytes # (Auto) 1.16 K/mcL (0.10-0.90); Monocytes % (Auto) 12.6 % (1.0-12.0); Neutrophils % (Auto) 57.4 % (38.0-78.0); Platelet Count 263 K/mcL (140-440); RBC 3.32 M/mcL (3.59-5.38); Red Cell Distribution Width 14.5 % (11.5-14.5); WBC 9.2 K/mcL (4.5-11.0)
[2021-12-13 07:52] LABS: Blood Urea Nitrogen 9 mg/dL (6-20); Calcium 9.1 mg/dL (8.6-10.4); Carbon Dioxide 23 mmol/L (22-30); Chloride 102 mmol/L (96-108); Glomerular Filtration Rate 82; Glucose 89 mg/dL (70-105)
[2021-12-13] MEDS ORDERED: VANCOMYCIN 1,500 MG in 0.9 % SODIUM CHLORIDE 500 ML IV SCH (10:00)
[2021-12-13] MEDS: DOCUSATE SODIUM 100 MG CAPSULE PO SCH (10:07)
[2021-12-13] MEDS: ENOXAPARIN 40 MG/0.4 ML SYRINGE SQ SCH (10:07)
[2021-12-13] MEDS: CEFEPIME 2 GM VIAL IV SCH (10:08)
[2021-12-13] MEDS: VANCOMYCIN 1,500 MG in 0.9 % SODIUM CHLORIDE 500 ML IV SCH (11:11)
--- NOTE | 2021-12-13 12:05 | Discharge Summary ---
Discharge Provider Provider IMPORTANT FOLLOW-UP INFORMATION FOR PCP: 1. Repeat CBC, BMP 2. Follow up with urology Patient information: Note initiated : 12/13/21 at 12:05 pm Service Date, if different from initiated Date: [] Patient: Sruthi Fan a 56 y/o F admitted on 12/09/21 for UTI, High WBC. Chief Complaint: [Malaise] Date of admission: 12/09/21 22:21 Discharge date: 12/13/21 Primary care physician: TERRY Pinto Admitting clinician: Cherie Lang Consults: 12/09/21 Consult to Physician [CONS] Stat Comment: Consulting Provider: Alexi Jacobs Reason For Exam: Physician to Consult Consult to Physician [CONS] Stat Comment: Consulting Provider: Cherie Lang Reason For Exam: Physician to Consult Attending physician on discharge: Cherie Lang COURSE Hospital Course Hospital course: At this point we will continue IV fluid resuscitation with LR 100 cc an hour to treat her acute kidney injury in the setting of underlying infectious process. The patient's urine culture and blood cultures are pending and in the meantime she will be treated with IV ceftriaxone. Her home diuretics and antihypertensives will be held. 12/10: The patient's white blood cell count has come down to 13,000 and her creatinine is improved to 1.4. Urine culture and blood cultures are pending. We will continue empiric IV ceftriaxone. The patient will likely discharge home tomorrow morning. 12/11: The patient's white blood cell count remains elevated at 14,000 and she continues to have fevers. Surprisingly her urine culture and blood cultures are negative. I will check respiratory panel and also broaden her coverage to cefepime and vancomycin. She has been given a migraine cocktail of sumatriptan, Compazine and Toradol x1. We will continue to monitor her inpatient. 12/12: The patient's CT head and chest x-ray were unrevealing. I wanted to rule out other possible sources of infection and possibly an LP with her ongoing headaches and fevers. Her urine culture has come back and it is E. coli confirming pyelonephritis. Her antibiotics have been switched to vancomycin and cefepime. She has been afebrile for 12 hours now. Her white blood cell count is also come back down to 11,000. Overall she is doing much better and the hope that she can return home tomorrow. 12/13: The patient has defervesced, her white blood cell count is normalized to 9.2. Her cefepime will be transition to ciprofloxacin 500 mg p.o. twice daily for total of 14 days of antibiotics. We will hold her home chlorthalidone and hydroxychloroquine until she follows up with her primary care physician. Discharge diagnosis: Sepsis, pyelonephritis, acute kidney injury Time Spent with Patient Time attestation: Total time spent providing and/or coordinating discharge services: Time spent: Greater than 30 minutes EXAM Constitutional Vitals: Temp Pulse Resp BP Pulse Ox 98.2 F 72 20 121/59 94 12/13/21 11:39 12/13/21 08:00 12/13/21 11:39 12/13/21 11:39 12/13/21 11:39 General appearance: average body habitus Head Head exam: Present atraumatic, normal inspection and normocephalic Eye Eye exam: Present EOMI, normal appearance and PERRL; Absent conjunctival injection ENT ENT exam: Present normal exam; Absent mucous membranes dry Neck Neck exam: Present full ROM; Absent lymphadenopathy Respiratory Respiratory exam: Present normal respiratory exam and CTAB; Absent decreased breath sounds, respiratory distress or wheezes Cardiovascular Cardiovascular exam: Present normal rate and rhythm and RRR; Absent JVD GI/Abdominal GI/Abdominal exam: Present normal bowel sounds and soft; Absent diminished bowel sounds, distended, guarding, mass, rebound or tenderness Neurological Exam Neurological exam: Present alert, CN II-XII intact and oriented X3 Psychiatric Psychiatric exam: Present normal affect and normal mood Skin Skin exam: Present intact and warm; Absent erythema, pallor, petechiae or rash Discharge Data Data Completed and Pending Labs on day of discharge: Labs from last 24 hours 12/13/21 12/13/21 12/13/21 08:05 05:29 05:29 WBC 9.2 RBC 3.32 L Hgb 9.9 L Hct 30.3 L MCV 91.3 MCH 29.8 MCHC 32.7 RDW 14.5 Plt Count 263 MPV 10.1 Neut % (Auto) 57.4 Lymph % (Auto) 26.1 [place] % (Auto) 12.6 H Eos % (Auto) 3.1 Baso % (Auto) 0.8 Lymph # (Auto) 2.41 [place] # (Auto) 1.16 H Eos # (Auto) 0.29 Baso # (Auto) 0.07 Absolute Neutrophils 5.30 Sodium 140 Potassium 3.2 L Chloride 102 Carbon Dioxide 23 Anion Gap 15.0 BUN 9 Creatinine 0.8 GFR Calculation 82 Glucose 89 Calcium 9.1 Vancomycin Trough 18.1 Preliminary micro results at discharge 12/11/21 22:38 Blood Culture - Preliminary Blood 12/11/21 22:28 Blood Culture - Preliminary Blood 12/09/21 15:36 Blood Culture - Preliminary Blood 12/09/21 15:15 Blood Culture - Preliminary Blood Discharge Plan Patient/Caregiver Discharge Instructions Activity: increase activity as tolerated Instructions: Kidney Infection (DC) Prescriptions: New ciprofloxacin HCl 500 mg tablet 500 mg PO BID Qty: 20 0RF Continued cyclobenzaprine 10 mg tablet 10 mg PO HS Qty: 30 3RF carvedilol 6.25 mg tablet 6.25 mg PO BID 0RF naproxen 250 mg tablet 250 mg PO Q6-12H PRN (Reason: Pain) 0RF magnesium 1 dose PO DAILY 0RF ascorbate calcium (vitamin C) 500 MG tablet 500 mg PO DAILY 0RF bupropion HCl 300 MG tablet extended release 24 hr 300 mg PO DAILY 0RF docusate sodium 100 MG capsule 100 mg PO TID 0RF omeprazole 20 MG capsule 20 mg PO ACB 0RF ergocalciferol (vitamin D2) 50,000 UNIT capsule 50,000 unit PO WEEKLY 0RF multivitamin,[id number] 1 EACH tablet 1 tab PO DAILY 0RF Discontinued hydroxychloroquine 200 mg tablet 200 mg PO BID Qty: 60 3RF chlorthalidone 25 mg tablet 12.5 mg PO QDAY 0RF Follow Up Plan Follow up with: Anjelica Gallardo ARNP [Primary Care Provider] - Patient Disposition: Home, Self-Care Care Plan Goals: Hold home chlorthalidone and hydroxychloroquine until you have recovered and followed up with your primary care physician. Prognosis: Fair Rehab Potential: Good I certify that the patient requires SNF services: No Overall status at discharge: patient is progressing back to baseline Discharge Orders: Discharge Order (Routine); Ordered 12/13/21 Ordered By: Cherie Lang
== END 2021-12-13 13:20 | disposition home or self-care (01) | DRG 872 ==
LOC: ED 15:03 → MEDSUR 22:21
PROVIDERS: ADMIT Student in an Organized Health Care Education/Training Program; ATTEND Student in an Organized Health Care Education/Training Program